=== PATIENT | female | born 1950 | race American Indian/Alaskan Native ===

== ENCOUNTER 2017-04-01 07:03 | Outpatient (CLI) | payer OTHER ==
--- NOTE | 2017-04-02 08:01 | Mammography Report ---
Bilateral mammogram: Compared to 03/19/16. CAD study utilized. Findings: Predominance adipose tissue bilaterally. No mass or microcalcification. Normal axilla. Impression: Essentially negative mammogram examination. BI-RADS CATEGORY: 2 = Benign ACR BI-RADS MAMMOGRAPHIC CODES: 0 = Needs additional imaging evaluation; 1 = Negative; 2 = Benign; 3 = Probably benign; 4 = Suspicious; 5 = Malignant; 6 = Known biopsy-proven malignancy COMMENT: 1. Dense breast tissue, i.e., adenosis, fibrocystic changes, etc., may obscure an underlying neoplasm. 2. Approximately 10% of cancers are not detected with mammography. 3. A negative mammography report should not delay biopsy if a clinically suspicious mass is present. COMMENT: Patient follow-up letters are generated in [employer].
== END 2017-04-01 07:04 | disposition home or self-care (01) ==
LOC: MAMMO 07:03
PROVIDERS: ATTEND Obstetrics & Gynecology
DX: Z12.31 Encounter for screening mammogram for malignant neoplasm of breast (principal); I10 Essential (primary) hypertension; J18.9 Pneumonia, unspecified organism
CPT/HCPCS: 77067; G0202

== ENCOUNTER 2017-05-16 05:48 | Day surgery (SDC) | payer OTHER ==
[2017-05-16] MEDS ORDERED: WATER FOR IRRIG STERILE IR ONE (06:44)
[2017-05-16] MEDS ORDERED: NACL 0.9% 1000 ML 1,000 ML IV SCH (07:00)
[2017-05-16] MEDS ORDERED: WATER FOR IRRIG STERILE ONE (07:04)
--- NOTE | 2017-05-16 07:24 | Anesthesia Consultation ---
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
--- NOTE | 2017-05-16 07:25 | Anesthesia Day of Surgery ---
Anesthesia Day of Surgery - Day of Surgery Patient Examined: Yes Patient H&P Reviewed: Yes Patient is NPO: Yes
[2017-05-16] MEDS ORDERED: DIPRIVAN 10 MG/ML IV ONE ×2 (07:26)
--- NOTE | 2017-05-16 08:09 | Short Stay Summary ---
Short Stay Documentation - Allergies and Medications Current Medications: Allergies No Known Allergies Allergy (Verified 05/15/17 12:06) Home Medications Medication Instructions Recorded Confirmed Last Taken Type Aspirin [Aspirin TAB] 325 mg PO QDAY #30 tablet 01/01/17 05/16/17 05/15/17 Rx AtorvaSTATin [Lipitor] 40 mg PO QHS #30 tablet 01/01/17 05/16/17 05/15/17 Rx Fluticasone [Flonase] 100 mcg NS QDAY PRN #1 bottle 01/01/17 05/15/17 Unknown Rx Hydrochlorothiazide [HCTZ] 25 mg PO QDAY #30 tablet 01/01/17 05/16/17 05/15/17 Rx Losartan [Cozaar] 100 mg PO QDAY #30 tablet 01/01/17 05/16/17 05/15/17 Rx Active Medications Sodium Chloride (Nacl 0.9% 1000 Ml) 1,000 mls @ 50 mls/hr IV DIRECT JEANNIE Last Admin: 05/16/17 07:17 Dose: 50 mls/hr - Brief post op/procedure progress note Date of procedure: 05/16/17 Pre-op diagnosis: Colon cancer screening Post-op diagnosis: same (1. Colon polyp 2. Internal hemorrhoid) Procedure: Colonoscopy with snare polypectomy Anesthesia: MAC Findings: as above Surgeon: SINAN FRENCH Estimated blood loss: none Pathology: list (1. Transverse colon polyp) Specimen disposition: to lab Condition: stable - Disposition Condition at discharge: Stable Disposition: [id number] TO HOME OR SELFCARE Short Stay Discharge Plan Activity: no restrictions Weight Bearing Status: Full Weight Bearing Diet: regular, low salt, diabetic Follow up with: ISAIAS SIMMS JR, MD [Primary Care Provider] - 7 Days
[2017-05-16 08:26] VITALS: BP 132/72
--- NOTE | 2017-05-16 08:30 | Post Anesthesia Evaluation ---
- Post Anesthesia Evaluation Patient Participated: Yes Airway Patent: Yes Stable Respiratory Function: Yes Temp > 96.8F: Yes Pain Manageable: Yes Adequeate Hydration: Yes Anesthesia Complications: No Block Receding Appropriately: Not Applicable
== END 2017-05-16 05:49 | disposition home or self-care (01) ==
LOC: GIO 05:48
PROVIDERS: ATTEND Internal Medicine Gastroenterology
DX: Z12.11 Encounter for screening for malignant neoplasm of colon (principal); D12.3 Benign neoplasm of transverse colon; K64.8 Other hemorrhoids; I10 Essential (primary) hypertension; E11.9 Type 2 diabetes mellitus without complications; E78.00 Pure hypercholesterolemia, unspecified; Z79.899 Other long term (current) drug therapy; Z79.82 Long term (current) use of aspirin; Z87.01 Personal history of pneumonia (recurrent); Z90.710 Acquired absence of both cervix and uterus; Z86.73 Personal history of transient ischemic attack (TIA), and cerebral infarction without residual deficits; Z72.89 Other problems related to lifestyle; Z80.9 Family history of malignant neoplasm, unspecified; Z83.3 Family history of diabetes mellitus
CPT/HCPCS: 45385; 82962; 88305; J2704; J7030

== ENCOUNTER 2018-01-30 19:34 | Emergency (ER) | payer OTHER ==
[2018-01-30 20:17] LABS: Basophils # (Auto) 0.1 K/mm3 (0.0-0.1); Eosinophils # (Auto) 0.2 K/mm3 (0.0-0.4); Eosinophils % (Auto) 2.8 % (0.0-4.3); Hematocrit 39.8 % (30.3-42.9); Hemoglobin 12.4 gm/dl (10.1-14.3); Lymphocytes # (Auto) 2.6 K/mm3 (1.2-5.4); Lymphocytes % (Auto) 41.4 % (13.4-35.0); Mean Corpuscular HGB Conc 31 % (30-34); Mean Corpuscular Volume 83 fl (79-97); Monocytes # (Auto) 0.5 K/mm3 (0.0-0.8); Monocytes % (Auto) 7.6 % (0.0-7.3); Platelet Count 263 K/mm3 (140-440); Red Blood Count 4.79 M/mm3 (3.65-5.03); Red Cell Distribution Width 14.1 % (13.2-15.2)
[2018-01-30 20:18] LABS: Mean Corpuscular Hemoglobin 26 pg (28-32)
[2018-01-30 20:27] LABS: BUN/Creatinine Ratio 15; Blood Urea Nitrogen 12 mg/dL (7-17); Calcium 9.4 mg/dL (8.4-10.2); Hemolysis Index 12; INR 0.86 (0.87-1.13)
[2018-01-30 20:28] LABS: Partial Thromboplastin Time 28.8 Sec. (24.2-36.6)
[2018-01-30] MEDS ORDERED: CATAPRES PO ONE (20:51)
--- NOTE | 2018-01-30 21:13 | Cat Scan Report ---
FINAL REPORT EXAM: CT HEAD/BRAIN WO CON HISTORY: neuro deficits < 6hrs or sx present upon awakening TECHNIQUE: CT head without contrast PRIORS: None. FINDINGS: No acute intra-axial or extra-axial hemorrhage is identified. There is no evidence of midline shift or mass effect. The ventricles and sulci are within normal limits. Snell-white matter differentiation is intact. There is hypodensity present at the right internal capsule likely reflecting chronic ischemic change there is some mild patchy hypodensity at the supratentorial white matter no acute parenchymal abnormalities seen. Bony calvarium is grossly intact. Visualized portions of the mastoids and paranasal sinuses are unremarkable. IMPRESSION: Chronic ischemic changes No acute abnormality seen
--- NOTE | 2018-01-31 00:20 | Emergency Department Report ---
HPI - General Chief Complaint: Dizziness Time Seen by Provider: 01/30/18 20:50 - HPI HPI: Shouldn't complain of mild headache, elevated blood pressure and dizziness. She has been compliant with medication but then stated the notice an increase in her blood pressure for the past 2 weeks. Patient denies any chest pain, shortness of breath, nausea, vomiting. 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, no residual) Hx Diabetes: Yes Hx HIV: No - Surgical History Past Surgical History?: Yes Hx Pacemaker: No - Social History Smoking Status: Never Smoker Substance Use Type: Alcohol - Medications Home Medications: Home Medications Medication Instructions Recorded Confirmed Last Taken Type Aspirin [Aspirin TAB] 325 mg PO QDAY #30 tablet 01/01/17 05/16/17 05/15/17 Rx AtorvaSTATin [Lipitor] 40 mg PO QHS #30 tablet 01/01/17 05/16/17 05/15/17 Rx Fluticasone [Flonase] 100 mcg NS QDAY PRN #1 bottle 01/01/17 05/15/17 Unknown Rx Hydrochlorothiazide [HCTZ] 25 mg PO QDAY #30 tablet 01/01/17 05/16/17 05/15/17 Rx Losartan [Cozaar] 100 mg PO QDAY #30 tablet 01/01/17 05/16/17 05/15/17 Rx cloNIDine [Catapres] 0.2 mg PO BID #60 tablet 01/31/18 Unknown Rx ED Review of Systems ROS: Stated complaint: STROKE SX Other details as noted in HPI Comment: All other systems reviewed and negative Cardiovascular: denies: chest pain, palpitations Gastrointestinal: denies: nausea, vomiting Neurological: other Physical Exam - Physical Exam Vital Signs: Vital Signs 01/30/18 01/30/18 01/30/18 19:34 19:55 20:56 Temperature 97.8 F Pulse Rate 81 80 Respiratory 16 15 Rate Blood Pressure 220/99 220/99 Blood Pressure [Left] O2 Sat by Pulse 99 99 98 Oximetry 01/30/18 01/30/18 01/30/18 21:00 21:02 21:16 Temperature Pulse Rate 76 64 Respiratory 17 22 Rate Blood Pressure 202/89 Blood Pressure [Left] O2 Sat by Pulse 94 99 Oximetry 01/30/18 01/30/18 01/30/18 21:30 21:46 22:00 Temperature Pulse Rate 60 57 L 59 L Respiratory 20 21 19 Rate Blood Pressure Blood Pressure [Left] O2 Sat by Pulse 100 99 98 Oximetry 01/30/18 01/30/18 01/30/18 22:16 22:30 22:46 Temperature Pulse Rate 58 L 58 L 56 L Respiratory 19 15 17 Rate Blood Pressure Blood Pressure [Left] O2 Sat by Pulse 98 99 97 Oximetry 01/30/18 22:59 Temperature Pulse Rate 68 Respiratory Rate Blood Pressure Blood Pressure 142/78 [Left] O2 Sat by Pulse Oximetry Physical Exam: - Physical Exam Physical Exam: - General Limitations: No Limitations General appearance: alert, in no apparent distress. - Head Head exam: Present: atraumatic, normocephalic - Eye Eye exam: Present: normal appearance - ENT ENT exam: Present: mucous membranes moist - Neck Neck exam: Present: normal inspection - Respiratory Respiratory exam: Present: normal lung sounds bilaterally. Absent: respiratory distress - Cardiovascular Cardiovascular Exam: Present: normal rhythm, normal rate. Absent: systolic murmur, diastolic murmur, rubs, gallop - GI/Abdominal GI/Abdominal exam: Present: soft, normal bowel sounds - Extremities Exam Extremities exam: Present: normal inspection - Back Exam Back exam: Present: normal inspection - Neurological Exam Neurological exam: Present: alert, oriented X3 - Psychiatric Psychiatric exam: normal affect and mood - Skin Skin exam: Present: warm, dry, intact, normal color. Absent: rash ED Course Vital Signs 01/30/18 01/30/18 01/30/18 19:34 19:55 20:56 Temperature 97.8 F Pulse Rate 81 80 Respiratory 16 15 Rate Blood Pressure 220/99 220/99 Blood Pressure [Left] O2 Sat by Pulse 99 99 98 Oximetry 01/30/18 01/30/18 01/30/18 21:00 21:02 21:16 Temperature Pulse Rate 76 64 Respiratory 17 22 Rate Blood Pressure 202/89 Blood Pressure [Left] O2 Sat by Pulse 94 99 Oximetry 01/30/18 01/30/18 01/30/18 21:30 21:46 22:00 Temperature Pulse Rate 60 57 L 59 L Respiratory 20 21 19 Rate Blood Pressure Blood Pressure [Left] O2 Sat by Pulse 100 99 98 Oximetry 01/30/18 01/30/18 01/30/18 22:16 22:30 22:46 Temperature Pulse Rate 58 L 58 L 56 L Respiratory 19 15 17 Rate Blood Pressure Blood Pressure [Left] O2 Sat by Pulse 98 99 97 Oximetry 01/30/18 22:59 Temperature Pulse Rate 68 Respiratory Rate Blood Pressure Blood Pressure 142/78 [Left] O2 Sat by Pulse Oximetry ED Medical Decision Making - Lab Data Result diagrams: 01/30/18 20:07 01/30/18 20:07 Critical care attestation.: If time is entered above; I have spent that time in minutes in the direct care of this critically ill patient, excluding procedure time. ED Disposition Clinical Impression: Hypertension Qualifiers: Hypertension type: essential hypertension Qualified Code(s): I10 - Essential ( primary) hypertension Disposition: - TO HOME OR SELFCARE Is pt being admited?: No Does the pt Need Aspirin: No Condition: Stable Instructions: Hypertension (ED) Prescriptions: cloNIDine [Catapres] 0.2 mg PO BID #60 tablet Referrals: JOESPH SWIFT MD [Primary Care Provider] - 3-5 Days
[2018-01-31 00:45] VITALS: BP 132/66
== END 2018-01-31 00:45 | disposition home or self-care (01) ==
LOC: ED 19:34
DX: I10 Essential (primary) hypertension (principal); I25.2 Old myocardial infarction; E11.9 Type 2 diabetes mellitus without complications; Z79.82 Long term (current) use of aspirin
CPT/HCPCS: 36415; 70450; 80048; 84484; 85025; 85610; 85670; 85730; 93005; 93010; 99285

== ENCOUNTER 2018-04-02 07:04 | Outpatient (CLI) | payer OTHER ==
--- NOTE | 2018-04-02 12:53 | Mammography Report ---
BILATERAL DIGITAL SCREENING MAMMOGRAM with CAD: 04/02/18 07:04:00 CLINICAL: Routine screening. COMPARISON:04/01/17 FINDINGS: The breasts are almost entirely fatty. No mass, architectural distortion or suspicious calcifications. IMPRESSION: No mammographic evidence of malignancy. BI-RADS CATEGORY: 1 - - Negative RECOMMENDATION: Routine mammographic screening in one year. COMMENT: Patient follow-up letters are generated by our [employer] application.
== END 2018-04-02 07:05 | disposition home or self-care (01) ==
LOC: MAMMO 07:04
PROVIDERS: ATTEND Obstetrics & Gynecology
DX: Z12.31 Encounter for screening mammogram for malignant neoplasm of breast (principal); E78.00 Pure hypercholesterolemia, unspecified; J18.9 Pneumonia, unspecified organism; E11.9 Type 2 diabetes mellitus without complications; Z90.710 Acquired absence of both cervix and uterus
CPT/HCPCS: 77067